=== PATIENT | male | born 1990 | race Hispanic/Latino ===

== ENCOUNTER 2017-02-15 03:16 | Inpatient (IN) | payer OTHER ==
--- NOTE | 2017-02-15 03:52 | Event Note ---
Date: 02/15/17 EKG reviewed. Old medical records reviewed. EKG morphologically abnormal, but grossly unchanged from prior. Patient may have a history of hypertrophic cardiomyopathy. Medical records from 2014 reviewed. The EKG is transmitted to the audit director, Dr. ardon, who agrees that EKG did not meet STEMI criteria.
[2017-02-15 04:18] LABS: Basophils % (Auto) 0.3 % (0.0-1.8); Eosinophils % (Auto) 0.1 % (0.0-4.3); Hematocrit 48.5 % (35.5-45.6); Hemoglobin 16.3 gm/dl (11.8-15.2); Mean Corpuscular HGB Conc 34 % (32-34); Mean Corpuscular Hemoglobin 32 pg (28-32); Mean Corpuscular Volume 94 fl (84-94); Platelet Count 234 K/mm3 (140-440); Red Blood Count 5.14 M/mm3 (3.65-5.03); Red Cell Distribution Width 13.1 % (13.2-15.2); White Blood Count 8.8 K/mm3 (4.5-11.0)
[2017-02-15 04:40] LABS: Anion Gap 20 mmol/L; Blood Urea Nitrogen 14 mg/dL (9-20); Calcium 9.4 mg/dL (8.4-10.2); Carbon Dioxide 24 mmol/L (22-30); Chloride 102.4 mmol/L (98-107); Glucose 100 mg/dL (75-100); Potassium 4.1 mmol/L (3.6-5.0); Sodium 142 mmol/L (137-145)
[2017-02-15] MEDS ORDERED: NACL 0.9% 1000 ML 1,000 ML IV ONE (09:30)
--- NOTE | 2017-02-15 10:03 | Emergency Department Report ---
ED Chest Pain HPI - General Chief Complaint: Chest Pain Stated Complaint: CP Time Seen by Provider: 02/15/17 09:05 Source: patient Mode of arrival: Ambulatory Limitations: No Limitations - History of Present Illness Initial Comments: This is a 27-year-old male who presents to the emergency department with complaint of midsternal nonradiating chest pain and some shortness of breath that has been going on since last night, about 3 hours prior to presentation. Patient says that he snorted entire eightball of cocaine, then went home and did some more. He Throwing away some of the cocaine saying that he was going to quit but kept breaking down and doing more. This was with some alcohol and marijuana use. Patient has been having some palpitations and insomnia. He denies any nausea, vomiting, fever, diaphoresis. He does have a past medical history of hypertrophic cardiomyopathy. He is a tobacco smoker. His sister at 20 years of age from hypertrophic cardiomyopathy. There is some other family history of early cardiac disease. No recent travel or sick contacts at home. Severity scale (0 -10): 9 - Related Data Home Medications Medication Instructions Recorded Confirmed Last Taken No Known Home Medications [No 02/15/17 02/15/17 Unknown Reported Home Medications] Allergies Allergy/AdvReac Type Severity Reaction Status Date / Time amoxicillin [Amoxicillin] Allergy Anaphylaxis Verified 01/23/15 13:01 TATI score - Tati Score Age > 65: (0) No Aspirin use within the Past 7 Days: (0) No 3 or more CAD Risk Factors: (0) No 2 or more Angina events in past 24 hrs: (1) Yes Known CAD with more than 50% Stenosis: (0) No Elevated Cardiac Markers: (0) No ST Deviation Greater than 0.5mm: (0) No TATI Score: 1 ED Review of Systems ROS: Stated complaint: CP Other details as noted in HPI Comment: All other systems reviewed and negative Constitutional: denies: chills, fever Eyes: denies: eye pain, eye discharge, vision change ENT: denies: ear pain, throat pain Respiratory: shortness of breath. denies: cough Cardiovascular: chest pain. denies: palpitations Gastrointestinal: denies: abdominal pain, nausea, diarrhea Genitourinary: denies: urgency, dysuria Musculoskeletal: denies: back pain, joint swelling, arthralgia Skin: denies: rash, lesions Neurological: denies: headache, weakness, paresthesias ED Past Medical Hx - Past Medical History Additional medical history: enlarged heart; irreg heart rate, HCM - Surgical History Past Surgical History?: No - Social History Smoking Status: Never Smoker Substance Use Type: Cocaine - Medications Home Medications: Home Medications Medication Instructions Recorded Confirmed Last Taken Type No Known Home Medications [No 02/15/17 02/15/17 Unknown History Reported Home Medications] ED Physical Exam - General Limitations: No Limitations - Other Other exam information: GENERAL: The patient is well-developed well-nourished. HEENT: Normocephalic. Atraumatic. Extraocular motions are intact. Patient has moist mucous membranes. Pupils equal reactive to light bilaterally. NECK: Supple. Trachea is midline. CHEST/LUNGS: Clear to auscultation. There is no respiratory distress noted. There is some reproducible tenderness to palpation of the right medial chest wall. HEART/CARDIOVASCULAR: Regular. There is no tachycardia. There is no gallop rub or murmur. ABDOMEN: Abdomen is soft, nontender. Patient has normal bowel sounds. There is no abdominal distention. SKIN:. NEURO: The patient is awake, alert, and oriented. The patient is cooperative. The patient has no focal neurologic deficits. The patient has normal speech. Patient appears slightly shaky or has some mild upper extremity tremor. MUSCULOSKELETAL: There is no tenderness or deformity. There is no limitation range of motion. There is no evidence of acute injury. Cap refill less than 2 seconds. ED Course Vital Signs 02/15/17 02/15/17 02/15/17 03:32 03:46 07:40 Temperature 98.3 F 98.3 F 97.9 F Pulse Rate 78 78 57 L Respiratory 18 18 Rate Blood Pressure 133/80 119/84 Blood Pressure [Left] Blood Pressure 133/80 [Right] O2 Sat by Pulse 100 100 100 Oximetry 02/15/17 02/15/17 02/15/17 08:56 08:58 08:59 Temperature Pulse Rate 104 H 55 L 54 L Respiratory 17 19 19 Rate Blood Pressure 131/60 Blood Pressure [Left] Blood Pressure [Right] O2 Sat by Pulse 100 99 Oximetry 02/15/17 02/15/17 02/15/17 09:00 09:01 09:02 Temperature Pulse Rate 54 L 53 L 54 L Respiratory 14 19 14 Rate Blood Pressure 125/60 125/60 125/60 Blood Pressure [Left] Blood Pressure [Right] O2 Sat by Pulse 98 99 100 Oximetry 02/15/17 02/15/17 02/15/17 09:04 09:06 09:07 Temperature Pulse Rate 60 51 L 54 L Respiratory 19 22 20 Rate Blood Pressure 125/60 125/60 Blood Pressure 131/60 [Left] Blood Pressure [Right] O2 Sat by Pulse 100 100 100 Oximetry 02/15/17 02/15/17 02/15/17 09:08 09:10 09:12 Temperature Pulse Rate 51 L 53 L 52 L Respiratory 20 22 21 Rate Blood Pressure 125/60 125/60 125/60 Blood Pressure [Left] Blood Pressure [Right] O2 Sat by Pulse 100 100 100 Oximetry 02/15/17 02/15/17 02/15/17 09:14 09:16 09:18 Temperature Pulse Rate 52 L 58 L 49 L Respiratory 18 20 20 Rate Blood Pressure 125/60 125/60 125/60 Blood Pressure [Left] Blood Pressure [Right] O2 Sat by Pulse 100 99 100 Oximetry 02/15/17 02/15/17 02/15/17 09:20 09:22 09:24 Temperature Pulse Rate 60 58 L 72 Respiratory 17 12 16 Rate Blood Pressure 125/60 125/60 125/60 Blood Pressure [Left] Blood Pressure [Right] O2 Sat by Pulse 100 100 100 Oximetry 02/15/17 02/15/17 02/15/17 09:26 09:27 09:36 Temperature Pulse Rate 60 63 50 L Respiratory 10 L 12 9 L Rate Blood Pressure 125/60 125/60 125/60 Blood Pressure [Left] Blood Pressure [Right] O2 Sat by Pulse 100 100 100 Oximetry 02/15/17 02/15/17 02/15/17 09:38 09:40 09:42 Temperature Pulse Rate 57 L 65 63 Respiratory 22 17 15 Rate Blood Pressure 125/60 125/60 125/60 Blood Pressure [Left] Blood Pressure [Right] O2 Sat by Pulse 100 100 99 Oximetry 02/15/17 02/15/17 02/15/17 09:44 09:46 09:48 Temperature Pulse Rate 58 L 55 L 63 Respiratory 10 L 24 15 Rate Blood Pressure 125/60 125/60 125/60 Blood Pressure [Left] Blood Pressure [Right] O2 Sat by Pulse 99 99 100 Oximetry 02/15/17 02/15/17 02/15/17 09:50 09:52 09:54 Temperature Pulse Rate 59 L 53 L 57 L Respiratory 14 24 20 Rate Blood Pressure 125/60 125/60 125/60 Blood Pressure [Left] Blood Pressure [Right] O2 Sat by Pulse 99 100 99 Oximetry 02/15/17 02/15/17 02/15/17 09:56 09:58 10:00 Temperature Pulse Rate 55 L 67 51 L Respiratory 22 15 14 Rate Blood Pressure 125/60 125/60 126/71 Blood Pressure [Left] Blood Pressure [Right] O2 Sat by Pulse 99 98 100 Oximetry 02/15/17 02/15/17 02/15/17 10:02 10:04 10:06 Temperature Pulse Rate 59 L 56 L 61 Respiratory 18 11 L 15 Rate Blood Pressure 126/71 126/71 125/60 Blood Pressure [Left] Blood Pressure [Right] O2 Sat by Pulse 99 100 99 Oximetry 02/15/17 02/15/17 02/15/17 10:08 10:10 10:12 Temperature Pulse Rate 53 L 59 L 52 L Respiratory 14 14 10 L Rate Blood Pressure 125/60 125/60 125/60 Blood Pressure [Left] Blood Pressure [Right] O2 Sat by Pulse 99 99 100 Oximetry 02/15/17 02/15/17 02/15/17 10:14 10:16 10:18 Temperature Pulse Rate 49 L 60 66 Respiratory 12 10 L 7 L Rate Blood Pressure 125/60 125/60 125/60 Blood Pressure [Left] Blood Pressure [Right] O2 Sat by Pulse 100 100 99 Oximetry 02/15/17 02/15/17 02/15/17 10:20 10:22 10:24 Temperature Pulse Rate 55 L 70 65 Respiratory 22 18 17 Rate Blood Pressure 125/60 125/60 125/60 Blood Pressure [Left] Blood Pressure [Right] O2 Sat by Pulse 100 99 100 Oximetry 02/15/17 02/15/17 02/15/17 10:26 10:28 10:30 Temperature Pulse Rate 58 L 58 L 59 L Respiratory 21 9 L 21 Rate Blood Pressure 125/60 125/60 125/60 Blood Pressure [Left] Blood Pressure [Right] O2 Sat by Pulse 100 100 100 Oximetry 02/15/17 02/15/17 02/15/17 10:32 10:34 10:36 Temperature Pulse Rate 61 62 66 Respiratory 21 13 18 Rate Blood Pressure 125/60 125/60 125/60 Blood Pressure [Left] Blood Pressure [Right] O2 Sat by Pulse 100 100 100 Oximetry 02/15/17 02/15/17 02/15/17 10:38 10:40 10:42 Temperature Pulse Rate 63 61 60 Respiratory 9 L 19 24 Rate Blood Pressure 125/60 125/60 125/60 Blood Pressure [Left] Blood Pressure [Right] O2 Sat by Pulse 100 100 100 Oximetry 02/15/17 02/15/17 02/15/17 10:44 10:46 10:48 Temperature Pulse Rate 62 61 62 Respiratory 16 21 16 Rate Blood Pressure 125/60 125/60 126/71 Blood Pressure [Left] Blood Pressure [Right] O2 Sat by Pulse 98 99 97 Oximetry 02/15/17 02/15/17 02/15/17 10:50 10:52 10:54 Temperature Pulse Rate 57 L 60 61 Respiratory 22 20 21 Rate Blood Pressure 126/71 126/71 126/71 Blood Pressure [Left] Blood Pressure [Right] O2 Sat by Pulse 99 99 99 Oximetry 02/15/17 02/15/17 02/15/17 10:56 10:58 11:00 Temperature Pulse Rate 66 58 L 66 Respiratory 22 22 20 Rate Blood Pressure 126/71 126/71 116/64 Blood Pressure [Left] Blood Pressure [Right] O2 Sat by Pulse 99 99 99 Oximetry 02/15/17 02/15/17 02/15/17 11:02 11:04 11:06 Temperature Pulse Rate 61 60 59 L Respiratory 19 20 21 Rate Blood Pressure 116/64 116/64 116/64 Blood Pressure [Left] Blood Pressure [Right] O2 Sat by Pulse 99 99 100 Oximetry 02/15/17 02/15/17 02/15/17 11:08 11:10 11:12 Temperature Pulse Rate 79 61 56 L Respiratory 21 20 13 Rate Blood Pressure 116/64 116/64 116/64 Blood Pressure [Left] Blood Pressure [Right] O2 Sat by Pulse 99 99 100 Oximetry 02/15/17 02/15/17 02/15/17 11:14 11:16 11:18 Temperature Pulse Rate 59 L 57 L 70 Respiratory 20 18 12 Rate Blood Pressure 116/64 116/64 116/64 Blood Pressure [Left] Blood Pressure [Right] O2 Sat by Pulse 99 100 98 Oximetry 02/15/17 02/15/17 02/15/17 11:20 11:22 11:24 Temperature Pulse Rate 59 L 58 L 50 L Respiratory 20 16 22 Rate Blood Pressure 116/64 116/64 116/64 Blood Pressure [Left] Blood Pressure [Right] O2 Sat by Pulse 99 99 100 Oximetry 02/15/17 02/15/17 02/15/17 11:26 11:28 11:30 Temperature Pulse Rate 54 L 55 L 56 L Respiratory 18 18 13 Rate Blood Pressure 116/64 116/64 116/64 Blood Pressure [Left] Blood Pressure [Right] O2 Sat by Pulse 100 100 99 Oximetry 02/15/17 02/15/17 02/15/17 11:32 11:34 11:36 Temperature Pulse Rate 63 52 L 62 Respiratory 24 25 H 11 L Rate Blood Pressure 116/64 116/64 116/64 Blood Pressure [Left] Blood Pressure [Right] O2 Sat by Pulse 99 99 98 Oximetry 02/15/17 02/15/17 02/15/17 11:37 11:38 11:40 Temperature Pulse Rate 60 50 L 58 L Respiratory 10 L 10 L 16 Rate Blood Pressure 116/64 116/64 116/64 Blood Pressure [Left] Blood Pressure [Right] O2 Sat by Pulse 100 99 99 Oximetry 02/15/17 02/15/17 02/15/17 11:42 11:44 11:46 Temperature Pulse Rate 56 L 82 59 L Respiratory 22 17 16 Rate Blood Pressure 116/64 116/64 116/64 Blood Pressure [Left] Blood Pressure [Right] O2 Sat by Pulse 99 99 98 Oximetry 02/15/17 02/15/17 11:48 11:50 Temperature Pulse Rate 57 L 59 L Respiratory 13 16 Rate Blood Pressure 116/64 116/64 Blood Pressure [Left] Blood Pressure [Right] O2 Sat by Pulse 99 99 Oximetry ED Medical Decision Making - Lab Data Result diagrams: 02/15/17 04:00 02/15/17 04:00 - EKG Data -: EKG Interpreted by Me EKG shows normal: sinus rhythm, axis, intervals, QRS complexes (LVH), ST-T waves (T waves inversions and ST depressions to inferior and lateral leads) Rate: normal - EKG Data When compared to previous EKG there are: no significant change Interpretation: unchanged when compared t (01/23/15) - Radiology Data Radiology results: image reviewed interpreted by me: Chest x-ray did not show any acute process. Heart is normal shape and size. No effusions. No pneumothorax. No signs of pneumonia seen. - Medical Decision Making This is a 27-year-old male presents to the emergency department after significant cocaine abuse with complaint of chest pain and some soreness of breath. Patient also has a history of hypertrophic cardiomyopathy and a family history in which his sister at age 20 from sudden secondary to her own hypertrophic cardiomyopathy. Patient was evaluated with physical exam, labs , imaging and EKG. His EKG appears abnormal with some signs of possible subendocardial injury with ST depressions and T-wave inversions inferior and lateral leads. However it is unchanged from previous and unchanged with a comparison done a few hours after presentation. A chest x-ray does not show any acute process. Patient's labs are mostly unremarkable and show negative troponins 3 and a negative d-dimer. However I have concern that the patient was to be discharged home, he will continue with his cocaine abuse, he would not follow up with a outpatient cardiology referral, and the patient would be high risk for sudden from hypertrophic cardiomyopathy. After speaking with the cook apprentice on-call, he suggested that the patient would benefit from admission and they will have the chief underwriter see him for risk stratification and regarding possible ICD placement in the near future. Accepted for admission by the hospitalist, Dr bergeron. - Differential Diagnosis cocaine abuse, CHF, SD, PE, costochondritis Critical Care Time: No Critical care attestation.: If time is entered above; I have spent that time in minutes in the direct care of this critically ill patient, excluding procedure time. ED Disposition Clinical Impression: Hypertrophic cardiomyopathy, Cocaine abuse Chest pain Qualifiers: Chest pain type: unspecified Qualified Code(s): R07.9 - Chest pain, unspecified Disposition: OP ADMITTED IP TO THIS HOSP Is pt being admited?: Yes Does the pt Need Aspirin: Yes Condition: Stable Instructions: Chest Pain (ED) Referrals: PRIMARY CARE, [Primary Care Provider] - 3-5 Days Time of Disposition: 13:10
--- NOTE | 2017-02-15 11:13 | XRay Report ---
Chest 2 views: Compared to 01/22/15. History: Chest pain. Findings: Normal cardiomediastinal silhouette. Trachea is midline. Ill-defined density measuring 2.5 cm in diameter left lower lobe retrocardiac region. Normal CP angles. Impression: Pneumonia or lung mass left lower lobe.
--- NOTE | 2017-02-15 13:35 | Consultation ---
History of Present Illness Consult date: 02/15/17 Consult reason: chest pain, other (abnormal ECG) History of present illness: The patient is a 27-year-old man with a history of hypertrophic cardiomyopathy, who is admittedly noncompliant with medical therapy and Dr. office visits. He presents to the hospital at this time with chest pain. His chest pain is intermittent and atypical, nonexertional. He has no unusual shortness of breath , no palpitations and no recent syncope. He admits to use of illicit drugs over the past several days. Serial ECGs done in the emergency room demonstrates normal sinus rhythm with left ventricular hypertrophy and repolarization abnormalities of LVH. Cardiac consultation was requested. The patient's family history is notable for hypertrophic cardiomyopathy in his sister and his father. He states that his sister at age 20 from complications arising from the hypertrophic heart. He states that his father has also had multiple open heart surgeries, uncertain of the specifics of these surgeries. He is currently in the emergency room, comfortable in no acute distress. He is stable sinus rhythm and stable blood pressure. Past History Past Medical History: other (hypertrophic cardiomyopathy) Medications and Allergies Allergies Allergy/AdvReac Type Severity Reaction Status Date / Time amoxicillin [Amoxicillin] Allergy Anaphylaxis Verified 01/23/15 13:01 Home Medications Medication Instructions Recorded Confirmed Last Taken Type No Known Home Medications [No 02/15/17 02/15/17 Unknown History Reported Home Medications] Review of Systems Cardiovascular: chest pain, no orthopnea, no palpitations, no rapid/irregular heart beat, no edema, no syncope, no lightheadedness, no shortness of breath Physical Examination Vital Signs Temp Pulse Resp BP Pulse Ox 98.3 F 78 18 133/80 100 02/15/17 03:32 02/15/17 03:32 02/15/17 03:32 02/15/17 03:32 02/15/17 03:32 General appearance: no acute distress HEENT: Positive: PERRL Neck: Positive: neck supple Cardiac: Positive: Reg Rate and Rhythm Lungs: Positive: Decreased Breath Sounds Neuro: Positive: Grossly Intact Abdomen: Positive: Soft Male genitourinary: Positive: deferred Skin: Positive: Clear Extremities: Absent: edema Results 02/15/17 04:00 02/15/17 04:00 CBC 02/15/17 Range/Units 04:00 WBC 8.8 (4.5-11.0) K/mm3 RBC 5.14 H (3.65-5.03) M/mm3 Hgb 16.3 H (11.8-15.2) gm/dl Hct 48.5 H (35.5-45.6) % Plt Count 234 (140-440) K/mm3 Lymph # 1.3 (1.2-5.4) K/mm3 [place] # 0.5 (0.0-0.8) K/mm3 Eos # 0.0 (0.0-0.4) K/mm3 Baso # 0.0 (0.0-0.1) K/mm3 Comprehensive Metabolic Panel 02/15/17 Range/Units 04:00 Sodium 142 (137-145) mmol/L Potassium 4.1 (3.6-5.0) mmol/L Chloride 102.4 (98-107) mmol/L Carbon Dioxide 24 (22-30) mmol/L BUN 14 (9-20) mg/dL Creatinine 0.8 (0.8-1.5) mg/dL Glucose 100 (75-100) mg/dL Calcium 9.4 (8.4-10.2) mg/dL EKG interpretations - Telemetry EKG Rhythm: Sinus Rhythm Assessment and Plan - Patient Problems (1) Hypertrophic cardiomyopathy Current Visit: Yes Status: Chronic Plan to address problem: 27-year-old man with a history of hypertrophic cardiomyopathy, and family history of cardiac in a sibling. Recommend that he is admitted, will get an echocardiogram for left ventricular function assessment and left ventricle wall thickness. Prior to discharge, we will get electrophysiology consultation. We'll also recommend that he is seen by social work program coordinator, to enable him establish outpatient medical and cardiology office follow-ups for his possibly life-threatening cardiomyopathy.
[2017-02-15] MEDS ORDERED: ZOFRAN IV PRN (14:00)
[2017-02-15] MEDS ORDERED: TYLENOL PO PRN (14:00)
[2017-02-15] MEDS ORDERED: SODIUM CHLORIDE FLUSH SYRINGE 10 ML IV PRN (14:00)
[2017-02-15] MEDS ORDERED: MILK OF MAGNESIA PO PRN (14:00)
[2017-02-15] MEDS ORDERED: DULCOLAX PR PRN (14:00)
[2017-02-15] MEDS ORDERED: NORCO 5/325 PO PRN (14:00)
--- NOTE | 2017-02-15 14:08 | History and Physical Report ---
History of Present Illness Date of examination: 02/15/17 Date of admission: 02/15/2017 Chief complaint: Chest pain History of present illness: 27-year-old male with a history of hypertrophic cardiomyopathy presents to the ED with a chief complaint of chest pain described as over the left chest nonradiating not associated with shortness of breath or dyspnea on exertion. Patient states pain can come when either at rest. Nonexertional. Patient states pain began after a cocaine binge and which he snorted a ball and then continued to snore when he got home. Patient is tempted to throw rugs away but cannot help himself and began to have more chest pain. Patient presented here chest pain has resolved now had cardiac evaluation in after family history noted and H CM noted patient was recommended to have ICD placement Past History Past Medical History: other (hypertrophic cardiomyopathy). denies: acute GA, atrial fib, anemia, ESRD, GERD, hepatitis, hypertension, liver disease, pulmonary embolism, seizures, sarcoidosis Past Surgical History: No surgical history Social history: single, Lives alone, smoking, alcohol abuse, full code, other ( cocaine marijuana) Family history: other (sister and father with hypertrophic cardiomyopathy ) Medications and Allergies Allergies Allergy/AdvReac Type Severity Reaction Status Date / Time amoxicillin [Amoxicillin] Allergy Anaphylaxis Verified 01/23/15 13:01 Home Medications Medication Instructions Recorded Confirmed Last Taken Type No Known Home Medications [No 02/15/17 02/15/17 Unknown History Reported Home Medications] Review of Systems Constitutional: no weight loss, no weight gain, no chills, no sweats, no fatigue , no weakness, no poor appetite Ears, nose, mouth and throat: no deferred, no ear pain, no decreased hearing, no sinus pressure, no bleeding gums, no dental pain, no mouth pain, no hoarseness, no sore throat, no swelling in mouth, no post-nasal drip, no headache, no vertigo, no pain front of neck, no neck lump Cardiovascular: chest pain, lightheadedness, decreased exercise tolerance, no orthopnea, no palpitations, no rapid/irregular heart beat, no edema, no syncope , no shortness of breath, no dyspnea on exertion, no paroxysmal nocturnal dyspnea, no claudication, no phlebitis, no high blood pressure, no leg edema Respiratory: no cough with sputum, no excessive sputum, no hemoptysis, no pleurisy, no pain, no pain on inspiration, no respiratory infections, no other Gastrointestinal: no nausea, no diarrhea, no constipation, no hematemesis, no hematochezia, no loss of appetite, no early satiety, no indigestion, no dyspepsia/bloating Genitourinary Male: no flank pain, no discharge, no urinary hesitancy, no nocturia Rectal: no incontinence, no bleeding, no itching, no discharge Musculoskeletal: no neck stiffness, no shooting arm pain, no arm numbness/ tingling, no shooting leg pain, no leg numbness/tingling, no atrophy, no limitation of motion, no fractures, no loss of height, no prior amputations, no arthritis Integumentary: no depigmentation, no dryness, no unusual bruising Neurological: no weakness, no tingling, no syncope, no vertigo, no migraines, no aphasia, no change in mentation, no changes in smell/taste, no balance difficulties, no double vision, no burning pain, no paralysis Psychiatric: hypersomnia, change in libido, irritability, no anxiety, no memory loss, no sleep disturbances, no change in appetite, no disorientation, no hallucinations, no paranoia, no hopelessness, no anxiety attacks, no confusion Endocrine: no cold intolerance, no polyphagia, no polydipsia, no polyuria, no nocturia, no proptosis, no palpatations, no high blood sugars, no low blood sugars, no fatigue Hematologic/Lymphatic: no easy bruising, no lymphedema Allergic/Immunologic: no urticaria, no allergic rhinitis, no anaphylaxis Exam - Constitutional Vitals: Temp Pulse Resp BP Pulse Ox 97.9 F 59 L 16 116/64 99 02/15/17 07:40 02/15/17 11:50 02/15/17 11:50 02/15/17 11:50 02/15/17 11:50 General appearance: Present: no acute distress, well-nourished - EENT Eyes: Present: PERRL ENT: hearing intact, clear oral mucosa - Neck Neck: Present: supple, normal ROM - Respiratory Respiratory effort: normal Respiratory: bilateral: CTA - Cardiovascular Heart Sounds: Present: S1 & S2. Absent: rub, click - Extremities Extremities: pulses symmetrical, No edema Peripheral Pulses: within normal limits - Abdominal General gastrointestinal: Present: soft, non-tender, non-distended, normal bowel sounds Male genitourinary: Present: normal - Integumentary Integumentary: Present: clear, warm, dry - Musculoskeletal Musculoskeletal: gait normal, strength equal bilaterally - Psychiatric Psychiatric: appropriate mood/affect, intact judgment & insight - Neurologic Neurologic: CNII-XII intact, moves all extremities Results - Labs CBC & Chem 7: 02/15/17 04:00 02/15/17 04:00 Labs: Laboratory Last Values WBC 8.8 K/mm3 (4.5-11.0) 02/15/17 04:00 RBC 5.14 M/mm3 (3.65-5.03) H 02/15/17 04:00 Hgb 16.3 gm/dl (11.8-15.2) H 02/15/17 04:00 Hct 48.5 % (35.5-45.6) H 02/15/17 04:00 MCV 94 fl (84-94) 02/15/17 04:00 MCH 32 pg (28-32) 02/15/17 04:00 MCHC 34 % (32-34) 02/15/17 04:00 RDW 13.1 % (13.2-15.2) L 02/15/17 04:00 Plt Count 234 K/mm3 (140-440) 02/15/17 04:00 Lymph % (Auto) 15.3 % (13.4-35.0) 02/15/17 04:00 [place] % (Auto) 6.1 % (0.0-7.3) 02/15/17 04:00 Eos % (Auto) 0.1 % (0.0-4.3) 02/15/17 04:00 Baso % (Auto) 0.3 % (0.0-1.8) 02/15/17 04:00 Lymph # 1.3 K/mm3 (1.2-5.4) 02/15/17 04:00 [place] # 0.5 K/mm3 (0.0-0.8) 02/15/17 04:00 Eos # 0.0 K/mm3 (0.0-0.4) 02/15/17 04:00 Baso # 0.0 K/mm3 (0.0-0.1) 02/15/17 04:00 Seg Neutrophils % 78.2 % (40.0-70.0) H 02/15/17 04:00 Seg Neutrophils # 6.9 K/mm3 (1.8-7.7) 02/15/17 04:00 D-Dimer < 135.00 ng/mlDDU (0-234) 02/15/17 09:48 Sodium 142 mmol/L (137-145) 02/15/17 04:00 Potassium 4.1 mmol/L (3.6-5.0) 02/15/17 04:00 Chloride 102.4 mmol/L (98-107) 02/15/17 04:00 Carbon Dioxide 24 mmol/L (22-30) 02/15/17 04:00 Anion Gap 20 mmol/L 02/15/17 04:00 BUN 14 mg/dL (9-20) 02/15/17 04:00 Creatinine 0.8 mg/dL (0.8-1.5) 02/15/17 04:00 Estimated GFR > 60 ml/min 02/15/17 04:00 BUN/Creatinine Ratio 17.50 % 02/15/17 04:00 Glucose 100 mg/dL (75-100) 02/15/17 04:00 Calcium 9.4 mg/dL (8.4-10.2) 02/15/17 04:00 Total Creatine Kinase 274 units/L (55-170) H 02/15/17 09:48 Troponin T < 0.010 ng/mL (0.00-0.029) 02/15/17 09:48 TSH 1.610 mlU/mL (0.270-4.200) 02/15/17 09:48 - Imaging and Cardiology EKG: image reviewed Chest x-ray: image reviewed Assessment and Plan Advance Directives: Yes VTE prophylaxis?: Chemical Plan of care discussed with patient/family: Yes - Patient Problems (1) Chest pain Current Visit: Yes Status: Acute Qualifiers: Chest pain type: unspecified Qualified Code(s): R07.9 - Chest pain, unspecified Plan to address problem: Most likely secondary to cocaine abuse a use of cocaine. Has since resolved now. Hypertrophic cardiomyopathy may be playing some role. No clear arrhythmias now. Plan for ICD. Evaluation for ICD. (2) Cocaine abuse Current Visit: Yes Status: Acute Plan to address problem: A shouldn't talked about the dangers of his cocaine in leading cause of in drug abuse. Especially heart disease. (3) Hypertrophic cardiomyopathy Current Visit: Yes Status: Chronic Plan to address problem: Occasional genetics of hypertrophic cardiomyopathy it's definitely will use of cocaine and strenuous activity. Patient to be evaluated by echo for CAD placement. Early hemodynamic stable. (4) Anxiety Current Visit: No Status: Acute Plan to address problem: Treat with Ativan when necessary. (5) Marijuana abuse Current Visit: No Status: Acute (6) Tobacco abuse counseling Current Visit: No Status: Acute Plan to address problem: Counseled patient about cessation of tobacco. Offer nicotine patch.
[2017-02-15 15:17] LABS: Creatine Kinase MB 3.4 ng/mL (0.0-4.0)
[2017-02-15 15:19] LABS: Creatine Kinase 250 units/L (55-170)
[2017-02-15] MEDS ORDERED: BENADRYL ONE (17:27)
[2017-02-15] MEDS ORDERED: VALIUM ONE (17:27)
[2017-02-15 18:22] LABS: Creatine Kinase MB 3.2 ng/mL (0.0-4.0)
[2017-02-15 18:23] LABS: Creatine Kinase 239 units/L (55-170)
[2017-02-15] MEDS ORDERED: VALIUM IV ONE (18:45)
[2017-02-15] MEDS ORDERED: BENADRYL IV ONE (18:45)
[2017-02-15 22:19] LABS: Creatine Kinase MB 2.9 ng/mL (0.0-4.0)
[2017-02-15 22:20] LABS: Creatine Kinase 231 units/L (55-170)
[2017-02-16 08:17] LABS: Anion Gap 18 mmol/L; Blood Urea Nitrogen 15 mg/dL (9-20); Calcium 8.9 mg/dL (8.4-10.2); Carbon Dioxide 24 mmol/L (22-30); Chloride 106.9 mmol/L (98-107); Glucose 94 mg/dL (75-100); Potassium 4.4 mmol/L (3.6-5.0); Sodium 144 mmol/L (137-145)
[2017-02-16] MEDS: ECOTRIN PO SCH (09:55)
[2017-02-16] MEDS: LOVENOX SUB-Q SCH (09:55)
[2017-02-16] MEDS: MORPHINE IV PRN ×3 (09:55→21:29)
--- NOTE | 2017-02-16 11:27 | Progress Note ---
History Interval history: Chest pain, Requesting rehab for cocaine use Hospitalist Physical - Constitutional Vitals: Temp Pulse Resp BP Pulse Ox 98.8 F 50 L 18 118/75 99 02/16/17 10:11 02/16/17 10:11 02/16/17 10:11 02/16/17 10:11 02/16/17 10:11 General appearance: Present: no acute distress, well-nourished Results - Labs CBC & Chem 7: 02/15/17 04:00 02/16/17 07:24 Labs: Laboratory Last Values WBC 8.8 K/mm3 (4.5-11.0) 02/15/17 04:00 RBC 5.14 M/mm3 (3.65-5.03) H 02/15/17 04:00 Hgb 16.3 gm/dl (11.8-15.2) H 02/15/17 04:00 Hct 48.5 % (35.5-45.6) H 02/15/17 04:00 MCV 94 fl (84-94) 02/15/17 04:00 MCH 32 pg (28-32) 02/15/17 04:00 MCHC 34 % (32-34) 02/15/17 04:00 RDW 13.1 % (13.2-15.2) L 02/15/17 04:00 Plt Count 234 K/mm3 (140-440) 02/15/17 04:00 Lymph % (Auto) 15.3 % (13.4-35.0) 02/15/17 04:00 [place] % (Auto) 6.1 % (0.0-7.3) 02/15/17 04:00 Eos % (Auto) 0.1 % (0.0-4.3) 02/15/17 04:00 Baso % (Auto) 0.3 % (0.0-1.8) 02/15/17 04:00 Lymph # 1.3 K/mm3 (1.2-5.4) 02/15/17 04:00 [place] # 0.5 K/mm3 (0.0-0.8) 02/15/17 04:00 Eos # 0.0 K/mm3 (0.0-0.4) 02/15/17 04:00 Baso # 0.0 K/mm3 (0.0-0.1) 02/15/17 04:00 Seg Neutrophils % 78.2 % (40.0-70.0) H 02/15/17 04:00 Seg Neutrophils # 6.9 K/mm3 (1.8-7.7) 02/15/17 04:00 D-Dimer < 135.00 ng/mlDDU (0-234) 02/15/17 09:48 Sodium 144 mmol/L (137-145) 02/16/17 07:24 Potassium 4.4 mmol/L (3.6-5.0) 02/16/17 07:24 Chloride 106.9 mmol/L (98-107) 02/16/17 07:24 Carbon Dioxide 24 mmol/L (22-30) 02/16/17 07:24 Anion Gap 18 mmol/L 02/16/17 07:24 BUN 15 mg/dL (9-20) 02/16/17 07:24 Creatinine 1.0 mg/dL (0.8-1.5) 02/16/17 07:24 Estimated GFR > 60 ml/min 02/16/17 07:24 BUN/Creatinine Ratio 15.00 % 02/16/17 07:24 Glucose 94 mg/dL (75-100) 02/16/17 07:24 Calcium 8.9 mg/dL (8.4-10.2) 02/16/17 07:24 Total Creatine Kinase 231 units/L (55-170) H 02/15/17 21:13 CK-MB (CK-2) 2.9 ng/mL (0.0-4.0) 02/15/17 21:13 CK-MB (CK-2) Rel Index 1.2 (0-4) 02/15/17 21:13 Troponin T < 0.010 ng/mL (0.00-0.029) 02/15/17 21:13 TSH 1.610 mlU/mL (0.270-4.200) 02/15/17 09:48
--- NOTE | 2017-02-16 14:06 | Progress Note ---
Assessment and Plan - Patient Problems (1) Hypertrophic cardiomyopathy Current Visit: Yes Status: Chronic Plan to address problem: 27-year-old man with a history of hypertrophic cardiomyopathy, and family history of cardiac in a sibling. Recommend that he is admitted, will get an echocardiogram for left ventricular function assessment and left ventricle wall thickness. Prior to discharge, we will get electrophysiology consultation. We'll also recommend that he is seen by social media marketing analyst, to enable him establish outpatient medical and cardiology office follow-ups for his possibly life-threatening cardiomyopathy. Subjective Date of service: 02/16/17 Interval history: The patient has no symptoms of palpitations or syncope. His major problems at this time is atypical chest pain and history of ongoing illicit substance abuse. I have recommended that he gets social media marketing analyst consult while in the hospital, to assist with outpatient cardiac follow-up for EP evaluation of his hypertrophic cardiomyopathy. In the future, he will likely need an internal cardiac defibrillator. Objective Vital Signs Temp Pulse Pulse Pulse Resp BP BP 02/16/17 10:11 98.8 F 50 L 18 02/16/17 09:16 02/16/17 05:53 97.5 F L 55 L 21 116/64 02/16/17 04:48 44 L 02/16/17 01:00 97.8 F 51 L 21 118/61 02/15/17 20:49 98.2 F 54 L 20 122/72 02/15/17 19:00 98.6 F 51 L 22 109/67 02/15/17 18:00 50 L 21 111/66 02/15/17 17:31 11 L BP Pulse Ox 02/16/17 10:11 118/75 99 02/16/17 09:16 100 02/16/17 05:53 97 02/16/17 04:48 02/16/17 01:00 94 02/15/17 20:49 97 02/15/17 19:00 99 02/15/17 18:00 98 02/15/17 17:31 - Physical Examination General: No Apparent Distress HEENT: Positive: PERRL Neck: Positive: neck supple Cardiac: Positive: Reg Rate and Rhythm Lungs: Positive: Decreased Breath Sounds Neuro: Positive: Grossly Intact Abdomen: Positive: Soft Skin: Positive: Clear Extremities: Absent: edema - Labs and Meds Cardiac Enzymes 02/15/17 02/15/17 Range/Units 17:45 21:13 CK-MB (CK-2) 3.2 2.9 (0.0-4.0) ng/mL Comprehensive Metabolic Panel 02/16/17 Range/Units 07:24 Sodium 144 (137-145) mmol/L Potassium 4.4 (3.6-5.0) mmol/L Chloride 106.9 (98-107) mmol/L Carbon Dioxide 24 (22-30) mmol/L BUN 15 (9-20) mg/dL Creatinine 1.0 (0.8-1.5) mg/dL Glucose 94 (75-100) mg/dL Calcium 8.9 (8.4-10.2) mg/dL - Imaging and Cardiology EKG: image reviewed
--- NOTE | 2017-02-17 10:47 | Discharge Summary ---
Providers - Providers Date of Admission: 02/15/17 16:51 Date of discharge: 02/17/17 Attending physician: BECKI EMERSON 02/16/17 16:32 Consult to Case Management [CONS] Routine Services Needed at Discharge: Steam Trap Man Notified:: major case detectivelottery manager physician: ASSISTANT CLINICAL NURSE MANAGER Hospitalization Condition: Fair Disposition: DISCHARGED TO HOME OR SELFCARE - Discharge Diagnoses (1) Chest pain Status: Acute Qualifiers: Chest pain type: unspecified Qualified Code(s): R07.9 - Chest pain, unspecified (2) Cocaine abuse Status: Chronic (3) Hypertrophic cardiomyopathy Status: Chronic Exam - Constitutional Vitals: Temp Pulse Resp BP Pulse Ox 98.2 F 49 L 18 129/77 99 02/17/17 08:06 02/17/17 08:06 02/17/17 08:06 02/17/17 08:06 02/17/17 08:06 Plan Diet: low fat, low cholesterol, low salt Additional Instructions: 1.Follow up with PCP or [facility] in 1 week. 2.Follow up with cardiology in 3-5 days. 3.Avoid cocaine. 4.No strenous activity until cleared by Physician. Follow up with: PRIMARY CARE, [Primary Care Provider] - 3-5 Days Prescriptions: Aspirin EC [Aspirin Enteric Coated TAB] 81 mg PO QDAY #30 tablet. Famotidine [Pepcid] 20 mg PO BID #60 tablet
[2017-02-17] MEDS: ECOTRIN PO SCH (11:08)
[2017-02-17] MEDS: MORPHINE IV PRN ×2 (11:08→15:21)
[2017-02-17] MEDS: LOVENOX SUB-Q SCH (11:09)
[2017-02-17 11:53] LABS: Hematocrit 46.7 % (35.5-45.6); Hemoglobin 15.7 gm/dl (11.8-15.2)
[2017-02-17 13:16] VITALS: BP 106/65
--- NOTE | 2017-02-17 13:57 | Admit Criteria Form ---
Admission Criteria Documentation: CARDIOLOGY GRG Clinical Indications for Admission to Inpatient Care ( Place 'X' for any and all applicable criteria): Hospital admission is needed for appropriate care of the patient because of ANY ONE of the following (1): [ ] I. Hemodynamic instability as indicated by ALL of the following (1)(2)(3) (4)(5) [ ]a) Vital signs or other findings not as expected for chronic patient condition or baseline [ ]b) Instability indicated by ANY ONE of the following: [ ]i) Hypotension [ ]ii) Symptomatic Tachycardia unresponsive to treatment ( e.g., analgesia, fluids, sedation as indicated) [ ]iii) Inadequate perfusion indicated by ANY ONE of the following: [ ] 1) Lactic acidosis (> 2 mmol/L) [ ] 2) New abnormal capillary refill (> 3 seconds) [ ] 3) Reduced urine output [ ] 4) New altered mental status [ ]iv) Orthostatic vital sign changes unresponsive to treatment (e.g., fluids) [ ]v) IV inotropic or vasopressor medication required to maintain adequate blood pressure or perfusion [ ] II. Severe heart failure as indicated by ANY ONE of the following(17)(18) [ ]a) Respiratory distress [ ]b) Hypotension [ ]c) Anasarca (refractory to outpatient therapy) [ ]d) Cardiac arrhythmias of immediate concern [ ]e) Myocardial ischemia [ ] III. Cardiac arrhythmias or findings of immediate concern indicated by ANY ONE of the following (19)(20): [ ] a) Heart rhythms that are inherently dangerous or unstable indicated by ANY ONE of the following (21)(22)(23): [ ] i) Resuscitated ventricular fibrillation or cardiac arrest [ ] ii) Ventricular escape rhythm [ ] iii) Sustained ventricular tachycardia (30 seconds or more of ventricular rhythm at greater than 100 beats per minute) [ ] iv) Nonsustained ventricular tachycardia and ANY ONE of the following: [ ] 1) Suspected cardiac ischemia as cause or consequence of ventricular tachycardia [ ] 2) In setting of acute myocarditis [ ] b) Unstable cardiac conduction defects indicated by ANY ONE of the following(23)(24)(25) [ ] i) Type II second-degree atrioventricular block [ ]ii) Third-degree atrioventricular block [ ]iii) New-onset left bundle branch block with suspected myocardial ischemia [ ]c) Any heart rhythm and ANY ONE of the following (21)(22)(26)(27) (28) [ ] i) Continuous long-term ECG monitoring needed (e.g., initiation of drug requiring monitoring for more than 24 hours) [ ] ii) Patient has automatic implanted cardioverter defibrillator that is repeatedly firing, malfunctioning, or in need of immediate adjustment of settings beyond the scope of ambulatory or observation care [ ]d) Heart rhythms of concern due to ANY ONE of the following: [ ] i) Hypotension [ ] ii) Respiratory distress [ ] iii) Association with other significant symptoms (e.g., bradycardia with syncope or ongoing dizziness, supraventricular tachycardia with chest pain (14)(15)(17) [ ] IV. Monitoring for cardiac contusion beyond the scope of observation care needed [A](30)(31)(32) [ ] V. Surgical or device complication (e.g., valve replacement complication , pacemaker dysfunction) (35)(41)(44)(45)(46) [ ] . Inpatient palliative care needed. [B](49) Also use Inpatient Palliative Care Criteria [ ] VII. Nonbacterial thrombotic (marantic) endocarditis (36)(43)(47)(48) [X] VIII. Cardiology condition, symptom, or finding for which emergency and observation care has failed or are not considered appropriate. [ ] IX. Acute valvular disease requiring inpatient as indicated by ANY ONE of the following (41) [ ]a) Acute valvular regurgitation (42) [ ]b) Noninfectious valvulitis (43) [ ]c) Obstructive valve thrombosis [ ]d) Paravalvular leak [ ]e) Other significant valvular disorder remaining after emergency or observation level of care (as appropriate) [ ]X. Pericardial disease requiring inpatient treatment as indicated by ANY ONE of the following (33)(34)(35)(36)(37) [ ]a) Suspected tamponade (38)(39)(40) [ ]b) Hemopericardium [ ]c) Other significant pericardial disorder remaining after emergency or observation level of care (as appropriate) [ ] XI. Cardiac ischemia beyond scope of emergency and observation care. [ ] XII. Hypertension requiring inpatient treatment as indicated by ANY ONE of the following (6)(7)(8) [ ]a) SBP greater than 220 mm Hg or DBP greater than 120 mmHg despite treatment [ ]b) SBP greater than 140 mm Hg or DBP greater than 100 mm Hg with evidence of acute end organ damage as indicated by ANY ONE of the following [ ] i) Altered mental status [ ] ii) Acute renal failure as indicated by new onset of ANY ONE of the following (9)(10)(11)(12)(13) [ ]1) 3-fold rise in serum creatinine from baseline [ ]2) Serum creatinine greater than 4 mg/dL ( 354 micromoles/L) with acute rise greater than 0.5 mg/dL (44.2 micromoles/L) [ ]3) Reduction of more than 75% in estimated glomerular filtration rate from baseline [ ]4) Estimated glomerular filtration rate less than 35 mL/min/1.73m2 (0.59 mL/sec/1.73m2) in child up to 18 years of age [ ]5) Cessation of urine output indicated by ALL of the following [ ]A. Adequate volume status [ ]B. Inadequate urine output as indicated by ANY ONE of the following [ ]a. Urine output less than 0.3 mL/kg/hr for 24 hours [ ]b. Anuria (urine output less than 0.1 mL/kg/hr) for 12 hours [ ] iii) Aortic dissection [ ] iv) Myocardial Ischemia [ ] v) Left ventricular heart failure [ ]vi) Retinal Hemorrhage [ ]vii) Other significant finding [ ]c) Hypertension in child requiring inpatient treatment as indicated by ALL of the following(14)(15)(16) [ ] i) Outpatient treatment not effective, not available, or not appropriate [ ]ii) SBP or DBP greater than 95th percentile for age [ ]iii) Evidence of acute end organ damage as indicated by ANY ONE of the following [ ]1) Altered mental status [ ]2) Acute renal failure as indicated by new onset of ANY ONE of the following(9)(10)(11)(12)(13) [ ]A. 3-fold rise in serum creatinine from baseline [ ]B. Serum creatinine greater than 4 mg/dL (354 micromoles/L) with acute rise greater than 0.5 mg/dL (44.2 micromoles/L) [ ]C. Reduction of more than 75% in estimated glomerular filtration rate from baseline [ ]D. Estimated glomerular filtration rate less than 35 mL/min/1.73m2 (0.59 mL/sec/1.73m2) in child up to 18 years of age [ ]E. Cessation of urine output indicated by ALL of the following [ ]a. Adequate volume status [ ]b. Inadequate urine output as indicated by ANY ONE of the following [ ]i) Urine output less than 0.3 mL/kg/hr for 24 hours [ ]ii) Anuria ( urine output less than 0.1 mL/kg/hr) for 12 hours [ ]3) Severe headache [ ]4) Visual disturbance [ ]5) Retinal hemorrhage [ ]6) Other significant finding [ ]XIII. Complications of transplanted heart indicated by ANY ONE of the following(61): [ ]a) Acute graft rejection requiring inpatient management (eg, intravenous immunosuppression)(62)(63) [ ]b) Acute graft heart failure indicated by ANY ONE of the following(64): [ ]i) Hemodynamic instability [ ]ii) Cardiac arrhythmias of immediate concern [ ]iii) Pulmonary edema that is very severe (eg, mechanical ventilation needed, imminent or likely, need for 100% oxygen to keep oxygen saturation above 90%) [ ]iv) Pulmonary edema that is persistent as indicated by ALL of the following: [ ]1) New need for oxygen therapy to keep oxygen saturation above 90% (or increased FiO2 need from baseline) [ ]2) Has not improved sufficiently with emergency department or observation care IV diuretics or other heart failure treatments[E] [ ]v) Altered mental status that is severe or persistent [ ]vi) Increased creatinine (new on laboratory test) with reduction of more than 50% in estimated glomerular filtration rate from baseline [ ]vii) Progressively (ongoing) rising creatinine (known from past laboratory test) with reduction of more than 25% in estimated glomerular filtration rate from baseline [ ]viii) Acute renal failure [ ]ix) Acute peripheral ischemia (eg, examination shows pulseless, cool, mottled, or cyanotic extremity) [ ]x) Pulmonary artery catheter monitoring needed [ ]xi) Other sign or symptom of heart failure requiring inpatient treatment (ie, too severe or not responsive to outpatient and observation care treatment) [ ]c) Infection requiring inpatient management (eg, Hemodynamic instability, need for intravenous antimicrobial treatment)(66)(67)(68)(69)(70) [ ]d) Cardiac allograft vasculopathy requiring inpatient management ( eg evidence of cardiac ischemia)(71) [ ]e) Other complication of transplanted heart (eg, stroke, severe pulmonary hypertension, severe valvular dysfunction) requiring inpatient management(72) The original [facility] [employer] content created by [facility] has been revised. The portions of the content which have been revised are identified through the use of italic text or in bold, and [facility] has neither reviewed nor approved the modified material. All other unmodified content is copyright [facility] [employer]. Please see references footnoted in the original [facility] edition 2016 Admission Criteria Met: Yes
--- NOTE | 2017-02-17 16:30 | Progress Note ---
Assessment and Plan Atypical Chest pain Hypertrophic cardiomyopathy Family history of cardiac in a sibling Plan: Outpatient electrophysiology evaluation of his hypertrophic cardiomyopathy February 25, 2017 at 1030a. In the future, he will likely need an internal cardiac defibrillator. Subjective Date of service: 02/17/17 Interval history: Patient resting in bed comfortably. No cardiac events on telemetry overnight. Objective Vital Signs Temp Pulse Pulse Pulse Resp Resp BP 02/17/17 15:21 20 02/17/17 13:14 98.6 F 48 L 18 02/17/17 11:40 42 L 02/17/17 11:08 20 02/17/17 10:00 42 L 20 20 02/17/17 08:06 98.2 F 49 L 18 02/17/17 05:00 98 F 44 L 20 02/17/17 04:00 43 L 02/17/17 00:43 97.9 F 42 L 20 02/16/17 20:00 98.2 F 41 L 47 L 20 02/16/17 18:06 98.2 F 49 L 18 126/72 BP Pulse Ox 02/17/17 15:21 02/17/17 13:14 106/65 98 02/17/17 11:40 02/17/17 11:08 02/17/17 10:00 98 02/17/17 08:06 129/77 99 02/17/17 05:00 116/68 100 02/17/17 04:00 02/17/17 00:43 123/66 95 02/16/17 20:00 130/81 100 02/16/17 18:06 98 - Physical Examination General: No Apparent Distress HEENT: Positive: PERRL Neck: Positive: neck supple Cardiac: Positive: Reg Rate and Rhythm Lungs: Positive: Decreased Breath Sounds Neuro: Positive: Grossly Intact Extremities: Absent: edema - Labs and Meds CBC 02/17/17 Range/Units 11:28 Hgb 15.7 H (11.8-15.2) gm/dl Hct 46.7 H (35.5-45.6) % - Imaging and Cardiology EKG: image reviewed
== END 2017-02-17 17:09 | disposition home or self-care (01) | DRG 313 ==
LOC: ED 03:16 → 4A 16:51
PROVIDERS: ADMIT Internal Medicine; ATTEND Internal Medicine
DX: R07.89 Other chest pain (principal); I42.2 Other hypertrophic cardiomyopathy; F17.210 Nicotine dependence, cigarettes, uncomplicated; F10.10 Alcohol abuse, uncomplicated; F14.10 Cocaine abuse, uncomplicated; F12.10 Cannabis abuse, uncomplicated; F41.9 Anxiety disorder, unspecified; Z60.2 Problems related to living alone; I51.7 Cardiomegaly; Z71.6 Tobacco abuse counseling; Z88.1 Allergy status to other antibiotic agents; Z91.19 Patient's noncompliance with other medical treatment and regimen; Z82.49 Family history of ischemic heart disease and other diseases of the circulatory system
CPT/HCPCS: 36415; 71020; 80048; 82550; 82553; 84443; 84484; 85014; 85018; 85025; 85379; 93005; 93010; 93306; 96361; 96374; 96375; J1200; J1650; J2270; J3360; J7030

== ENCOUNTER 2017-07-05 03:57 | Inpatient (IN) | payer SELFPAY ==
[2017-07-05 05:01] LABS: Basophils % (Auto) 0.6 % (0.0-1.8); Eosinophils % (Auto) 1.1 % (0.0-4.3); Hematocrit 47.4 % (35.5-45.6); Hemoglobin 16.4 gm/dl (11.8-15.2); Mean Corpuscular HGB Conc 35 % (32-34); Mean Corpuscular Hemoglobin 33 pg (28-32); Mean Corpuscular Volume 96 fl (84-94); Platelet Count 273 K/mm3 (140-440); Red Blood Count 4.92 M/mm3 (3.65-5.03); Red Cell Distribution Width 13.6 % (13.2-15.2); White Blood Count 8.5 K/mm3 (4.5-11.0)
[2017-07-05 05:19] LABS: Anion Gap 23 mmol/L; Blood Urea Nitrogen 16 mg/dL (9-20); Carbon Dioxide 20 mmol/L (22-30); Chloride 102.1 mmol/L (98-107); Glucose 96 mg/dL (75-100); Potassium 3.9 mmol/L (3.6-5.0); Sodium 141 mmol/L (137-145)
--- NOTE | 2017-07-05 08:21 | Emergency Department Report ---
ED Chest Pain HPI - General Chief Complaint: Chest Pain Stated Complaint: CHEST PAIN Time Seen by Provider: 07/05/17 08:12 Source: patient Mode of arrival: Ambulatory Limitations: No Limitations - History of Present Illness Initial Comments: Patient stated that he is been having chest pain started at 3:00 this morning. Describes his chest pain as pressure-like left sided. Patient admitted that he' s been using meth last night. MD Complaint: chest pain Onset: during rest Pain Location: substernal, left chest Severity scale (0 -10): 3 Quality: pressure Improves With: nothing re: denies: nausea, vomting, dyspnea - Related Data Previous Rx's Medication Instructions Recorded Last Taken Type Aspirin EC [Aspirin Enteric Coated 81 mg PO QDAY #30 tablet. 02/17/17 Unknown Rx TAB] Famotidine [Pepcid] 20 mg PO BID #60 tablet 02/17/17 Unknown Rx Allergies Allergy/AdvReac Type Severity Reaction Status Date / Time amoxicillin [Amoxicillin] Allergy Anaphylaxis Verified 01/23/15 13:01 Heart Score - HEART Score History: Moderately suspicious EKG: Significant ST-depression Age: < 45 Risk factors: No known risk factors Troponin: < normal limit HEART Score: 3 - Critical Actions Critical Actions: 0-3 pts:0.9-1.7%risk of adverse cardiac event.Candidate for discharge ED Review of Systems ROS: Stated complaint: CHEST PAIN Other details as noted in HPI Comment: All other systems reviewed and negative Constitutional: denies: chills, fever Respiratory: denies: cough, shortness of breath, stridor Cardiovascular: chest pain. denies: palpitations, dyspnea on exertion Endocrine: denies: excessive sweating, intolerance to cold Gastrointestinal: denies: abdominal pain, nausea, vomiting, diarrhea Skin: denies: rash Neurological: denies: headache, weakness, numbness, paresthesias Psychiatric: denies: visual hallucinations ED Past Medical Hx - Past Medical History Previous Medical History?: Yes Hx Congestive Heart Failure: No Hx Diabetes: No Hx Asthma: No Hx COPD: No Additional medical history: enlarged heart; irreg heart rate, HCM - Surgical History Past Surgical History?: No - Social History Smoking Status: Current Every Day Smoker Substance Use Type: Alcohol, Cocaine, Methamphetamines, Other - Medications Home Medications: Home Medications Medication Instructions Recorded Confirmed Last Taken Type Aspirin EC [Aspirin Enteric Coated 81 mg PO QDAY #30 tablet. 02/17/17 Unknown Rx TAB] Famotidine [Pepcid] 20 mg PO BID #60 tablet 02/17/17 Unknown Rx ED Physical Exam - General Limitations: No Limitations General appearance: alert, in no apparent distress - Eye Eye exam: Present: normal appearance - ENT ENT exam: Present: normal exam - Neck Neck exam: Present: normal inspection, full ROM - Respiratory Respiratory exam: Present: normal lung sounds bilaterally - Cardiovascular Cardiovascular Exam: Present: regular rate, normal rhythm, normal heart sounds - GI/Abdominal GI/Abdominal exam: Present: soft. Absent: tenderness, guarding - Back Exam Back exam: Absent: CVA tenderness (R), CVA tenderness (L) - Neurological Exam Neurological exam: Present: alert, oriented X3, CN II-XII intact - Skin Skin exam: Present: warm, normal color ED Course Vital Signs 07/05/17 07/05/17 04:08 07:44 Temperature 98.7 F Pulse Rate 83 Respiratory 18 18 Rate Blood Pressure 134/77 [Right] O2 Sat by Pulse 99 100 Oximetry - Reevaluation(s) Reevaluation #1: 07/05/17 08:[address] Krueger from [facility] filter tank tender head I sent him the EKG he looked at it and he stated that this is not a STEMI he advised to give benzodiazepine and he is coming to see the patient in the ER. Reevaluation #2: 07/05/17 09:49 Patient stated that his pain is better I discussed was Dr. Mason for admission TATI score - Tati Score Age > 65: (0) No Aspirin use within the Past 7 Days: (0) No 3 or more CAD Risk Factors: (0) No 2 or more Angina events in past 24 hrs: (1) Yes Known CAD with more than 50% Stenosis: (0) No Elevated Cardiac Markers: (0) No ST Deviation Greater than 0.5mm: (0) No TATI Score: 1 ED Medical Decision Making - Lab Data Result diagrams: 07/05/17 04:43 07/05/17 04:43 Critical care attestation.: If time is entered above; I have spent that time in minutes in the direct care of this critically ill patient, excluding procedure time. ED Disposition Clinical Impression: Chest pain, Substance abuse Disposition: OP ADMIT IP TO THIS HOSP Is pt being admited?: Yes Condition: Stable Instructions: Chest Pain (ED) Referrals: PRIMARY CARE, [Primary Care Provider] - 3-5 Days
[2017-07-05] MEDS ORDERED: NACL 0.9% 1000 ML 1,000 ML IV ONE (08:23)
[2017-07-05] MEDS ORDERED: BABY ASPIRIN PO ONE (08:23)
[2017-07-05] MEDS ORDERED: ATIVAN IV ONE (08:23)
--- NOTE | 2017-07-05 09:47 | XRay Report ---
AP CHEST : 07/05/17 03:57:00 CLINICAL: Chest pain COMPARISON:None FINDINGS: Normal heart and pulmonary vessels. Stable left retrocardiac opacity of uncertain significance. This was seen on the prior exam and is unchanged. The bones and soft tissues are unremarkable. IMPRESSION: Left retrocardiac opacity of uncertain etiology or significance. Consider CT chest
--- NOTE | 2017-07-05 10:25 | Consultation ---
History of Present Illness Consult date: 07/05/17 Requesting physician: HAL MARSHALL Consult reason: chest pain (patient is a 27-year-old male with a history of hypertrophic cardiomyopathy presented to the hospital with chest pain. She has had previous admissions for similar complaints. Patient was admitted a few months ago with chest pain and had a complete cardiac workup. Patient was noted to have hypertrophic cardiomyopathy.) History of present illness: patient is a 27-year-old male with a history of hypertrophic cardiomyopathy presented to the hospital with chest pain. She has had previous admissions for similar complaints. Patient was admitted a few months ago with chest pain and had a complete cardiac workup. Patient was noted to have hypertrophic cardiomyopathy. Close follow-up with cardiology as recommended unfortunately patient has failed to follow up with cardiology. Patient continues to abuse illicit drugs. He reports that he used meth yesterday. Complaining of weakness and fatigue. He went to the emergency room patient was noted to have an abnormal EKG that has not changed significantly from prior EKG. Currently hemodynamically stable. Past History Past Medical History: other (hypertrophic cardiomyopathy, abnormal EKG) Past Surgical History: No surgical history Social history: smoking, IV drug use Family history: other (significant family history of hypertrophic cardiomyopathy questionable history of sudden cardiac and a sister) Medications and Allergies Allergies Allergy/AdvReac Type Severity Reaction Status Date / Time amoxicillin [Amoxicillin] Allergy Anaphylaxis Verified 01/23/15 13:01 Home Medications Medication Instructions Recorded Confirmed Last Taken Type Aspirin EC [Aspirin Enteric Coated 81 mg PO QDAY #30 tablet. 02/17/17 Unknown Rx TAB] Famotidine [Pepcid] 20 mg PO BID #60 tablet 02/17/17 Unknown Rx Review of Systems All systems: negative (except as mentioned in the H&P) Physical Examination Vital Signs Temp Pulse Resp BP Pulse Ox 98.7 F 83 18 134/77 99 07/05/17 04:08 07/05/17 04:08 07/05/17 04:08 07/05/17 04:08 07/05/17 04:08 General appearance: no acute distress HEENT: Positive: Normocephaly Neck: Positive: neck supple, trachea midline Cardiac: Positive: Reg Rate and Rhythm Lungs: Positive: clear to auscultation Neuro: Positive: Grossly Intact Abdomen: Positive: Unremarkable Male genitourinary: Positive: deferred Extremities: Present: normal Results 07/05/17 04:43 07/05/17 04:43 CBC 07/05/17 Range/Units 04:43 WBC 8.5 (4.5-11.0) K/mm3 RBC 4.92 (3.65-5.03) M/mm3 Hgb 16.4 H (11.8-15.2) gm/dl Hct 47.4 H (35.5-45.6) % Plt Count 273 (140-440) K/mm3 Lymph # 1.8 (1.2-5.4) K/mm3 [place] # 0.7 (0.0-0.8) K/mm3 Eos # 0.1 (0.0-0.4) K/mm3 Baso # 0.1 (0.0-0.1) K/mm3 Comprehensive Metabolic Panel 07/05/17 Range/Units 04:43 Sodium 141 (137-145) mmol/L Potassium 3.9 (3.6-5.0) mmol/L Chloride 102.1 (98-107) mmol/L Carbon Dioxide 20 L (22-30) mmol/L BUN 16 (9-20) mg/dL Creatinine 0.8 (0.8-1.5) mg/dL Glucose 96 (75-100) mg/dL Calcium 9.0 (8.4-10.2) mg/dL EKG interpretations - Telemetry EKG Rhythm: Sinus Rhythm (LVH with repolarization abnormalities) Assessment and Plan 1. Atypical chest pain 2. Hypertrophic cardiomyopathy with recent echocardiogram demonstrating septal wall thickness of 2.5 with preserved LV function and no significant JULIANO or mitral regurgitation 3. Normal EKG reflecting underlying hypertrophic cardiomyopathy with no new changes 4. Drug abuse Plan Aggressive IV hydration Avoid hypotension Counseling for illicit drug use Social service evaluation to help with establishing care with liability analyst Extensively discussed his underlying condition and abstinence from illicit drugs No further cardiac evaluation is needed at this point
--- NOTE | 2017-07-05 10:49 | History and Physical Report ---
History of Present Illness Date of examination: 07/05/17 Chief complaint: Chest pain History of present illness: Patient is a 27-year-old man with history of hypertrophic cardiomyopathy, tobacco dependency, alcohol abuse with Luana, cocaine (none x 5-6 months) and methamphetamine abuse who presents with substernal, right lateral chest pressure, nonradiating, severe, constant acute chest pains started yesterday prior to using methamphetamine without any aggravating or relieving factors. Patient was admitted a few months ago with chest pain and had a complete cardiac workup. Initially patient was called in as a STEMI alert and was immediately seen by cardiology Dr. Matthew Krueger. Patient does not have a STEMI and I reviewed prior EKGs has not had any significant changes. Patient does communicate complaining of weakness and fatigue but no muscle deficits also strength loss of consciousness or syncope or headaches. He denies any fevers chills, cough. Constitutional: no weight loss, no weight gain, no chills, no sweats, no fatigue , no weakness, no poor appetite Ears, nose, mouth and throat: no deferred, no ear pain, no decreased hearing, no sinus pressure, no bleeding gums, no dental pain, no mouth pain, no hoarseness, no sore throat, no swelling in mouth, no post-nasal drip, no headache, no vertigo, no pain front of neck, no neck lump Cardiovascular: chest pain, lightheadedness, decreased exercise tolerance, no orthopnea, no palpitations, no rapid/irregular heart beat, no edema, no syncope , no shortness of breath, no dyspnea on exertion, no paroxysmal nocturnal dyspnea, no claudication, no phlebitis, no high blood pressure, no leg edema Respiratory: no cough with sputum, no excessive sputum, no hemoptysis, no pleurisy, no pain, no pain on inspiration, no respiratory infections, no other Gastrointestinal: no nausea, no diarrhea, no constipation, no hematemesis, no hematochezia, no loss of appetite, no early satiety, no indigestion, no dyspepsia/bloating Genitourinary Male: no flank pain, no discharge, no urinary hesitancy, no nocturia Rectal: no incontinence, no bleeding, no itching, no discharge Musculoskeletal: no neck stiffness, no shooting arm pain, no arm numbness/ tingling, no shooting leg pain, no leg numbness/tingling, no atrophy, no limitation of motion, no fractures, no loss of height, no prior amputations, no arthritis Integumentary: no depigmentation, no dryness, no unusual bruising Neurological: no weakness, no tingling, no syncope, no vertigo, no migraines, no aphasia, no change in mentation, no changes in smell/taste, no balance difficulties, no double vision, no burning pain, no paralysis Psychiatric: hypersomnia, change in libido, irritability, no anxiety, no memory loss, no sleep disturbances, no change in appetite, no disorientation, no hallucinations, no paranoia, no hopelessness, no anxiety attacks, no confusion Endocrine: no cold intolerance, no polyphagia, no polydipsia, no polyuria, no nocturia, no proptosis, no palpatations, no high blood sugars, no low blood sugars, no fatigue Hematologic/Lymphatic: no easy bruising, no lymphedema Allergic/Immunologic: no urticaria, no allergic rhinitis, no anaphylaxis Past History Past Medical History: other (hypertrophic cardiomyopathy, abnormal EKG) Past Surgical History: No surgical history Social history: smoking, alcohol abuse, IV drug use, full code Family history: other (significant family history of hypertrophic cardiomyopathy questionable history of sudden cardiac and a sister) Medications and Allergies Allergies Allergy/AdvReac Type Severity Reaction Status Date / Time amoxicillin [Amoxicillin] Allergy Anaphylaxis Verified 01/23/15 13:01 Home Medications Medication Instructions Recorded Confirmed Last Taken Type Aspirin EC [Aspirin Enteric Coated 81 mg PO QDAY #30 tablet. 02/17/17 Unknown Rx TAB] Famotidine [Pepcid] 20 mg PO BID #60 tablet 02/17/17 Unknown Rx Review of Systems All systems: negative Exam - Physical Exam Narrative exam: GEN: WDWN, NAD, AWAKE, ALERT, ORIENTATED x 3 HEENT: NCAT, PERRL, EOMI, OP CLEAR NECK: SUPPLE, NO THYROMEGALY, NO JVD, NO LAD CVS: RRR, NORMAL S1S2 LUNGS/CHEST: CTA B, NORMAL CHEST EXPANSION B, GOOD AIR ENTRY B ABD: SOFT, NTND, GBS, NO REBOUND OR GUARDING EXT/SKIN: NO SIGNIFICANT EDEMA OR RASH MSK: FROM X 4 EXTREMITIES NEURO: CN 2-12 GROSSLY INTACT, NO FOCAL DEFICITS PSY: CALM - Constitutional Vitals: Temp Pulse Resp BP Pulse Ox 98.7 F 83 18 134/77 100 07/05/17 04:08 07/05/17 04:08 07/05/17 07:44 07/05/17 04:08 07/05/17 07:44 Results - Labs CBC & Chem 7: 07/05/17 04:43 07/05/17 04:43 Labs: Abnormal lab results 07/05/17 07/05/17 Range/Units 04:43 04:43 Hgb 16.4 H (11.8-15.2) gm/dl Hct 47.4 H (35.5-45.6) % MCV 96 H (84-94) fl MCH 33 H (28-32) pg MCHC 35 H (32-34) % [place] % (Auto) 8.4 H (0.0-7.3) % Carbon Dioxide 20 L (22-30) mmol/L - Imaging and Cardiology EKG: image reviewed Assessment and Plan Patient is a 27-year-old man with history of hypertrophic cardiomyopathy, tobacco dependency, alcohol abuse with Luana, cocaine (none x 5-6 months) and methamphetamine abuse who presents with substernal, right lateral chest pressure, nonradiating, severe, constant acute chest pains started yesterday prior to using methamphetamine without any aggravating or relieving factors. Patient was admitted a few months ago with chest pain and had a complete cardiac workup. Initially patient was called in as a STEMI alert and was immediately seen by cardiology Dr. Matthew Krueger. Patient does not have a STEMI and I reviewed prior EKGs has not had any significant changes. Patient does communicate complaining of weakness and fatigue but no muscle deficits also strength loss of consciousness or syncope or headaches. He denies any fevers chills, cough. -Chest pain most likely related to muscle skeletal costochondritis and drug abuse: Defer to cardiology, asymptomatically -Methamphetamine abuse: Counseling stopping -Alcohol abuse: Counseling on stopping and alcohol protocol -Bradycardia, sinus: Cardiology is following -DVT prophylaxis: Subcutaneous heparin Full code Disposition: Home once cleared by cardiology
[2017-07-05 10:51] VITALS: BP 114/86
--- NOTE | 2017-07-05 10:56 | Discharge Summary ---
Providers - Providers Date of discharge: 07/05/17 Primary care physician: [employer] Hospitalization Condition: Stable Hospital course: Patient is a 27-year-old man with history of hypertrophic cardiomyopathy, tobacco dependency, alcohol abuse with Luana, cocaine (none x 5-6 months) and methamphetamine abuse who presents with substernal, right lateral chest pressure, nonradiating, severe, constant acute chest pains started yesterday prior to using methamphetamine without any aggravating or relieving factors. Patient was admitted a few months ago with chest pain and had a complete cardiac workup. Initially patient was called in as a STEMI alert and was immediately seen by cardiology Dr. Matthew Mojica. Patient does not have a STEMI and I reviewed prior EKGs has not had any significant changes. Patient does communicate complaining of weakness and fatigue but no muscle deficits also strength loss of consciousness or syncope or headaches. He denies any fevers chills, cough. -Chest pain most likely related to muscle skeletal costochondritis due to drug abuse:treat symptomatically, d/c after ivf finished. -Methamphetamine abuse: Counseling stopping -Alcohol abuse: Counseling on stopping and alcohol protocol -Bradycardia, sinus: Cardiology is following -DVT prophylaxis: Subcutaneous heparin Full code Disposition: Home once cleared by cardiology per Cardiololgy, Dr. Matthew Mojica< "1. Atypical chest pain 2. Hypertrophic cardiomyopathy with recent echocardiogram demonstrating septal wall thickness of 2.5 with preserved LV function and no significant JULIANO or mitral regurgitation 3. Normal EKG reflecting underlying hypertrophic cardiomyopathy with no new changes 4. Drug abuse Plan Aggressive IV hydration Avoid hypotension Counseling for illicit drug use Social service evaluation to help with establishing care with music director Extensively discussed his underlying condition and abstinence from illicit drugs No further cardiac evaluation is needed at this point" Disposition: DC-09 OP ADMIT IP TO THIS HOSP Time spent for discharge: 31 minutes Core Measure Documentation - Palliative Care Palliative Care/ Comfort Measures: Not Applicable - Core Measures Any of the following diagnoses?: none - VTE Discharge Requirements Deep Vein Thrombosis/Pulmonary Embolism Present on Admission: No Has pt received <5 days of overlap therapy or INR<2.0: No Anticoagulant overlap therapy prescribed at discharge: No Contraindication No Overlap Therapy order at DC: Not Indicated Exam - Physical Exam Narrative exam: GEN: WDWN, NAD, AWAKE, ALERT, ORIENTATED x 3 HEENT: NCAT, PERRL, EOMI, OP CLEAR NECK: SUPPLE, NO THYROMEGALY, NO JVD, NO LAD CVS: RRR, NORMAL S1S2 LUNGS/CHEST: CTA B, NORMAL CHEST EXPANSION B, GOOD AIR ENTRY B ABD: SOFT, NTND, GBS, NO REBOUND OR GUARDING EXT/SKIN: NO SIGNIFICANT EDEMA OR RASH MSK: FROM X 4 EXTREMITIES NEURO: CN 2-12 GROSSLY INTACT, NO FOCAL DEFICITS PSY: CALM - Constitutional Vitals: Temp Pulse Resp BP Pulse Ox 98.7 F 54 L 7 L 114/86 100 07/05/17 04:08 07/05/17 10:30 07/05/17 10:30 07/05/17 10:30 07/05/17 10:30 Plan Activity: other (no strenous activites until cleared by cardiology) Diet: low salt Follow up with: PRIMARY CAREMD [Primary Care Provider] - 3-5 Days KATY MOJICA MD [Staff Physician] - 7 Days Prescriptions: Thiamine [Vitamin B-1] 100 mg PO QDAY #30 tablet
== END 2017-07-05 11:29 | disposition home or self-care (01) | DRG 206 ==
LOC: ED 03:57 → 4A 10:46
PROVIDERS: ADMIT Internal Medicine; ATTEND Internal Medicine
DX: M94.0 Chondrocostal junction syndrome [Tietze] (principal); I42.2 Other hypertrophic cardiomyopathy; Z88.1 Allergy status to other antibiotic agents; F14.90 Cocaine use, unspecified, uncomplicated; F19.10 Other psychoactive substance abuse, uncomplicated; F10.10 Alcohol abuse, uncomplicated; F17.210 Nicotine dependence, cigarettes, uncomplicated; F15.10 Other stimulant abuse, uncomplicated; Z71.51 Drug abuse counseling and surveillance of drug abuser; Z84.89 Family history of other specified conditions; R00.1 Bradycardia, unspecified; Z71.41 Alcohol abuse counseling and surveillance of alcoholic
CPT/HCPCS: 36415; 71010; 80048; 83880; 84484; 85025; 93005; 93010; 96360; J2060; J7030